=== PATIENT | female | born 2005 | race Caucasian/White ===

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

== ENCOUNTER 2024-07-11 02:06 | Inpatient (IN) | payer OTHER ==
[2024-07-11] MEDS ORDERED: TERBUTALINE 1 MG/ML VIAL SQ PRN (02:58)
[2024-07-11] MEDS ORDERED: miSOPROStoL 200 MCG TAB RECTAL PRN (02:58)
[2024-07-11] MEDS ORDERED: METHYLERGONOVINE 0.2 MG/ML 1 ML AMP IM PRN (02:58)
[2024-07-11] MEDS ORDERED: miSOPROStoL 200 MCG TAB PO PRN (02:58)
[2024-07-11] MEDS ORDERED: OXYTOCIN 10 UNIT/ML 1 ML VIAL IM PRN (02:58)
[2024-07-11] MEDS ORDERED: TRANEXAMIC 1,000 MG/100ML-NACL 1,000 MG in EMPTY BAG 1 BAG IV PRN (02:58)
[2024-07-11] MEDS ORDERED: CARBOPROST TROMETHAMINE 250 MCG/ML 1 ML AMP IM PRN (02:58)
[2024-07-11] MEDS: LACTATED RINGERS 1,000 ML IV SCH (04:03)
[2024-07-11] MEDS: OXYTOCIN 30 UNITS/500 ML NS 30 UNIT in SALINE 1 500ML.BAG IV SCH (04:04)
[2024-07-11] MEDS: AMPICILLIN 2,000 MG in SODIUM CHLORIDE 0.9% 100 ML IVPB STA (04:12)
[2024-07-11 05:08] LABS: HCT 39.5 % (34.0-46.0); HGB 12.8 gm/dL (11.4-16.0); MCH 29.3 pg (25.0-35.0); MCHC 32.5 g/dL (31.0-37.0); MCV 90.2 fL (80.0-100.0); Mean Platelet Volume 9.9; Platelet Count 238 k/uL (150-450); Poikilocytosis Slight; RBC 4.38 m/uL (3.80-5.40); RDW 14.8 % (11.5-15.5); WBC 15.3 k/uL (4.0-11.0)
[2024-07-11 06:33] LABS: Eosinophils # (M) 0.15 k/uL (0-0.7); Lymphocytes # (M) 1.53 k/uL (1.0-4.8); Monocytes # (M) 0.61 k/uL (0-1.0); Neutrophils # (M) 13.01 k/uL (1.3-7.7); Neutrophils % (M) 85 %; Nucleated Red Blood Cells 0 /100 WBC (0-0); Total Cells Counted 100
[2024-07-11] MEDS ORDERED: SODIUM CHLORIDE 0.9% 250 ML BAG ONE (07:25)
[2024-07-11] MEDS ORDERED: ROPIVACAINE 5 MG/ML 30 ML VIAL ONE (07:25)
[2024-07-11] MEDS ORDERED: fentaNYL (PF) 50 MCG/ML 5 ML AMP ONE (07:25)
[2024-07-11] MEDS: AMPICILLIN 1,000 MG in SODIUM CHLORIDE 0.9% 50 ML IVPB SCH (07:45)
[2024-07-11] MEDS: ONDANSETRON 4 MG/2 ML VIAL IVP STA (07:45)
[2024-07-11] MEDS: METOCLOPRAMIDE 5 MG/ML 2 ML VIAL IVP STA (10:55)
--- NOTE | 2024-07-11 11:17 | P.HPOB ---
History of Present Illness H&P Date: 07/11/24 Chief Complaint: Leaking of fluid Ms. Bateman is a 18 year old at 41 weeks and 0 days with EDC of 07/04/2024 who presents with SROM at 1200 on 07/10/24. The patient was admitted after positive amnisure. Pitocin induction was started. The has been essentially uncomplicated. The baby is expected to weigh in the 24%ile based on a 32 week growth US. labs: blood type A positive, antibody screen negative, rubella immune, VDRL non-reactive, HBsAg negative, HIV negative, HCV non-reactive, gonorrhea negative, chlamydia negative, GBS negative. Past Medical History Past Medical History: Asthma, Pneumonia History of Any Multi-Drug Resistant Organisms: None Reported, MRSA Date of last positivie culture/infection: 2015 MDRO Source:: neck and legs Past Surgical History: Tonsillectomy Past Anesthesia/Blood Transfusion Reactions: No Reported Reaction Past Psychological History: Anxiety Smoking Status: Former smoker Past Alcohol Use History: None Reported Past Drug Use History: None Reported, Marijuana Medications and Allergies Home Medications Medication Instructions Recorded Confirmed Type Vit No.179/Iron/Folic 1 each PO DAILY 03/08/24 03/08/24 History [ Tablet] Allergies Allergy/AdvReac Type Severity Reaction Status Date / Time Sulfa (Sulfonamide Allergy Unknown Rash/Hives Verified 07/11/24 02:12 Antibiotics) codeine Allergy Rash/Hives Verified 07/11/24 02:12 Exam Vital Signs Temp Pulse Resp BP Pulse Ox 07/11/24 02:50 97.2 F L 82 16 137/84 98 Intake and Output 07/10/24 07/11/24 07/11/24 22:59 06:59 14:59 Other: # Voids 2 Weight 88.904 kg Focused physical exam is performed. This is a healthy-appearing in no apparent distress. Breathing is non-labored. Abdomen is gravid and non-tender. Cervical exam is 9/100/-1. AROM of forebag performed with meconium staining noted. Extremities non-tender and non-edematous. heart tones are Category I and tocometer is graphing contractions every 2-4 minutes. Results Result Diagrams: 07/11/24 03:42 Abnormal Lab Results - Last 24 Hours (Table) 03/28/25 Range/Units 03:42 WBC 15.3 H (4.0-11.0) k/uL Neutrophils # (Manual) 13.01 H (1.3-7.7) k/uL Assessment and Plan Assessment: 18 year old at 41 weeks presenting with prolonged rupture of membranes Plan: Admit, clear liquid diet, pitocin per protocol, antibiotics started by covering physician, continuous EFM and tocometer. Anticipate vaginal delivery.
[2024-07-11] MEDS ORDERED: HYDROCORTISONE 2.5% RECTAL CREAM 30 GM TUBE RECTAL PRN (12:27)
[2024-07-11] MEDS ORDERED: diphenhydrAMINE 25 MG CAP PO PRN (12:27)
[2024-07-11] MEDS ORDERED: diphenhydrAMINE 50 MG/ML 1 ML VIAL IVP PRN ×2 (12:27)
[2024-07-11] MEDS ORDERED: LANOLIN CREAM 1 GM TUBE TOPICAL PRN (12:27)
[2024-07-11] MEDS ORDERED: ZOLPIDEM 5 MG TAB PO PRN (12:27)
[2024-07-11] MEDS ORDERED: SIMETHICONE 80 MG CHEWABLE PO PRN (12:27)
[2024-07-11] MEDS ORDERED: diphenhydrAMINE 50 MG CAP PO PRN (12:27)
--- NOTE | 2024-07-11 12:27 | P.PROBDLV ---
Vaginal Delivery Note - . Vaginal Delivery Note: DATE OF SERVICE: 07/11/2024 PROCEDURE: Normal Vaginal Delivery ATTENDING: Dr. Do Alberts MD ESTIMATED BLOOD LOSS: 500 mL FINDINGS: VFI, Apgars 9/9. Weight 7 pounds and 11 ounces (3490 grams) PROCEDURE: Ms. Bateman is a 18 year old at 41 weeks presenting to labor and delivery for spontaneous rupture of membranes at 1200 on 07/10. The has been essentially uncomplicated. For further details, please review the admitting H&P. Pitocin was titrated per protocol. The patient received epidural anesthesia per her request. The patient was completely dilated at 1120. She pushed effectively with Category I FHTs. A viable female infant was delivered at 1154. The infant was placed on the maternal abdomen and bulb suctioned. The was noted to be spontaneously crying. Cord was clamped and cut after a 60-second delay. The infant was handed off to the pediatric team. Placenta was delivered whole with gentle cord traction at 1157. Oxytocin was started to facilitate uterine tone. Uterine fundus was found to be firm and below the umbilicus upon fundal massage. Thorough examination of the cervix, vagina, periurethral area, and perineum revealed a second degree perineal laceration and a left labial laceration in close association with a left labial hematoma. These areas were infiltrated with lidocaine. The second degree perineal laceration was repaired with 2-0 Vicryl in the usual fashion. The labial laceration was repaired with 3- 0 Vicryl in a running fashion. The left labial hematoma was noted to be stable in size through the end of the laceration repairs. The patient is stable and allowed to begin the bonding process.
[2024-07-11] MEDS: IBUPROFEN 800 MG TAB PO SCH (12:56)
[2024-07-11] MEDS: LIDOCAINE 0.5% (PF) 5 MG/ML (50 ML SDV) SQ PRN (13:11)
[2024-07-11] MEDS: BENZOCAINE/MENTHOL SPRAY 1 GM/SPRAY AEROSOL TOPICAL PRN (13:12)
[2024-07-11] MEDS: ROPIVACAINE 225 MG, fentaNYL (PF). 450 MCG in SODIUM CHLORIDE 0.9% 171 ML EPIDURAL ONE (16:27)
[2024-07-11] MEDS: ACETAMINOPHEN TAB 500 MG TAB PO SCH (19:03)
[2024-07-11] MEDS: SENNOSIDES-DOCUSATE SODIUM 1 EACH TAB PO SCH (22:17)
[2024-07-12 04:31] LABS: Basophils % (A) 0 %; Eosinophils # (A) 0.1 k/uL (0-0.7); Eosinophils % (A) 1 %; HCT 28.1 % (34.0-46.0); Lymphocytes # (A) 2.2 k/uL (1.0-4.8); Lymphocytes % (A) 15 %; MCH 29.6 pg (25.0-35.0); MCHC 32.8 g/dL (31.0-37.0); MCV 90.4 fL (80.0-100.0); Mean Platelet Volume 8.2; Monocytes # (A) 0.7 k/uL (0-1.0); Monocytes % (A) 5 %; Neutrophils # (A) 11.5 k/uL (1.3-7.7); Neutrophils % (A) 78 %; Platelet Count 184 k/uL (150-450); RBC 3.11 m/uL (3.80-5.40); RDW 14.5 % (11.5-15.5); WBC 14.8 k/uL (4.0-11.0)
[2024-07-12 04:40] LABS: HGB 9.2 gm/dL (11.4-16.0)
--- NOTE | 2024-07-12 08:07 | P.PNOBGVD ---
Subjective - Subjective Patient reports: Reports appetite normal, Reports voiding normally, Reports pain well controlled, Reports ambulating normally : doing well, in NICU (Receiving prophylactic antibiotics for prolonged rupture of membranes and elevated white count.) Objective - Latest Vital Signs Latest vital signs: Vital Signs Temp Pulse Resp BP Pulse Ox 07/12/24 07:48 97.5 F L 66 14 111/77 07/12/24 00:15 98.6 F 92 17 104/62 97 07/11/24 20:00 97.8 F 82 15 104/72 99 07/11/24 16:29 98.1 F 93 16 112/75 97 07/11/24 14:12 97.8 F 96 17 102/58 07/11/24 13:57 88 17 106/61 07/11/24 13:42 89 16 113/67 07/11/24 13:27 96 16 104/62 07/11/24 13:12 91 17 109/70 07/11/24 12:57 113 H 17 152/89 07/11/24 12:42 90 17 107/87 07/11/24 12:27 93 17 128/82 07/11/24 12:12 98.0 F 100 17 128/86 Intake and Output 07/11/24 07/12/24 07/12/24 22:59 06:59 14:59 Other: # Voids 1 - Exam Extremities: Present: normal Abdomen: Present: normal appearance, soft Uterus: Present: normal, firm (Uterine fundus is tonic and nontender below the umbilicus.) - Labs Labs: Abnormal Lab Results - Last 24 Hours (Table) 07/12/24 Range/Units 04:04 WBC 14.8 H (4.0-11.0) k/uL RBC 3.11 L (3.80-5.40) m/uL Hgb 9.2 L D (11.4-16.0) gm/dL Hct 28.1 L (34.0-46.0) % Neutrophils # 11.5 H (1.3-7.7) k/uL Assessment and Plan (1) (normal spontaneous vaginal delivery) Current Visit: Yes Status: Acute Code(s): O80 - ENCOUNTER FOR FULL-TERM UNCOMPLICATED DELIVERY SNOMED Code(s): 13958267 Plan: The infant is in the nursery, the patient will remain in the hospital. She will continue to have routine care and I would anticipate discharge home tomorrow pending no complications.
[2024-07-13 08:29] VITALS: RESP 16
--- NOTE | 2024-07-13 11:53 | P.DS ---
Providers Date of admission: 07/11/24 02:53 Expected date of discharge: 07/13/24 Attending physician: Do Alberts MD Primary care physician: Stated None - Discharge Diagnosis(es) (1) (normal spontaneous vaginal delivery) Current Visit: Yes Status: Acute Hospital Course: The patient is a 18-year-old 1 para 0 admitted at 41-0/7 weeks by good dating parameters. She is admitted with spontaneous rupture of membranes for more than 24 hours with all signs reassuring, category 1 heart rate tracing. Her has been essentially uncomplicated and group B strep status is negative. On labor delivery, she had antibiotic prophylaxis started and underwent Pitocin augmentation. She had an epidural catheter placed for analgesia and ultimately progressed to complete where after she pushed to a normal spontaneous vaginal delivery of a viable 7 pound 11 ounce baby girl with Apgars of 9 at 1 minute and 9 at 5 minutes. The was taken to the special care nursery secondary to potential prolonged rupture of membranes and elevated initial white blood cell count where she continues to have prophylactic antibiotics pending culture. The patient's course was unremarkable with vital signs remaining stable and her temperature was afebrile throughout. She was deemed stable for discharge on day #2 and was discharged to home to follow-up in the office in 6 weeks time routinely. Discharge instructions included calling for any significantly increased bleeding, foul- smelling lochia, significantly increased fever or abdominal pain, perineal complaints, breast complaints, or anything else that concerned her. She was additionally instructed to have nothing in the vagina for at least 6 weeks time to include intercourse. She understood her instructions and agrees to follow-up as noted above. Discharge medications included continued vitamins as she has opted to breast-feed. She was otherwise to use [id number] analgesic pain medications as needed. Paternal blood type is a positive and rubella status is immune. Procedures: #1. Antibiotic prophylaxis #2. Pitocin augmentation #3. Epidural analgesia #4. Normal spontaneous vaginal delivery #5. Repair of second-degree perineal laceration Patient Condition at Discharge: Stable Plan - Discharge Summary Discharge Rx Participant: Yes New Discharge Prescriptions: No Action Vit No.179/Iron/Folic [ Tablet] 1 each PO DAILY Discharge Medication List Vit No.179/Iron/Folic [ Tablet] 1 each PO DAILY 03/08/24 [History] Follow up Appointment(s)/Referral(s): Do Alberts MD [STAFF PHYSICIAN] - 6 Weeks Discharge Disposition: HOME SELF-CARE
[2024-07-13 16:16] VITALS: BP 118/73; PULSE 69; TEMP 97.7
== END 2024-07-13 19:00 | disposition home or self-care (01) | DRG 560 ==
LOC: FBPOP 02:06 → 4FBP 02:53
PROVIDERS: ADMIT Obstetrics & Gynecology Obstetrics; ATTEND Obstetrics & Gynecology
PROC: 10E0XZZ Delivery of Products of Conception, External Approach (ICD-10-PCS; principal; 2024-07-11)
PROC: 0KQM0ZZ Repair Perineum Muscle, Open Approach (ICD-10-PCS; 2024-07-11)
PROC: 0UQMXZZ Repair Vulva, External Approach (ICD-10-PCS; 2024-07-11)
DX: O42.02 Full-term premature rupture of membranes, onset of labor within 24 hours of rupture (principal); Z37.0 Single live birth; O48.0 Post-term pregnancy; Z3A.41 41 weeks gestation of pregnancy; Z86.14 Personal history of Methicillin resistant Staphylococcus aureus infection; Z87.891 Personal history of nicotine dependence; O70.1 Second degree perineal laceration during delivery
CPT/HCPCS: 59025; 84112; 85025; 86850; 86900; 86901; 88307; 99213